=== PATIENT | female | born 1975 ===

== ENCOUNTER 2025-09-23 05:55 | Day surgery (SDC) | payer OTHER ==
[2025-09-16 11:21] VITALS: BP 112/68
[2025-09-16 11:59] LABS: BASO % 0.4 % (0.1-1.2); EOS # 0.10 (0.04-0.54); EOS % 1.1 % (0.7-7.0); LYMPH # 1.67 (1.18-3.74); LYMPH % 17.7 % (19.3-53.1); MEAN PLATELET VOLUME 8.70 fl (9.4-12.4); MONO # 0.58 (0.24-0.82); MONO % 6.1 % (4.7-12.5); NEUT # 6.99 (1.56-6.13); NEUT % 74.1 % (34.0-71.1); RED CELL DISTRIBUTION WIDTH 18.1 % (11.6-14.4)
[2025-09-16 12:22] LABS: URINE APPEARANCE Clear; URINE BILIRRUBIN Negative (NEGATIVE); URINE BLOOD Negative; URINE COLOR Yellow; URINE GLUCOSE Negative (NEGATIVE); URINE KETONE Trace (NEGATIVE); URINE LEUKOCYTE Trace; URINE NITRATE Negative; URINE PROTEIN Negative (NEGATIVE); URINE UROBILINOGEN 0.2 E.U./dl
[2025-09-16 12:23] LABS: INR 0.98
[2025-09-16 12:25] LABS: URINE BACTERIA 579.9 uL (0.0-1933); URINE EPITHELIAL CELLS 15.6 uL (0.0-38.8); URINE RBC 8.3 uL (0.0-20.8); URINE WBC 13.9 uL (0.0-23.2)
[2025-09-16 12:26] LABS: URINE CAST 0.00 uL (0.0-1.40)
[2025-09-16 12:40] LABS: BUN CREA RATIO 23.0 (7.0-25.0); CREATININE SERUM 0.48 mg/dL (0.55-1.02); GFR 136.9; GLUCOSE FASTING 95.0 mg/dL (65-100); OSMOLALITY SERUM 280.0 MOSM/KG (275-295)
[2025-09-23] MEDS ORDERED: CEFAZOLIN SODIUM 1,000 MG VIAL ONE (08:24)
[2025-09-23] MEDS ORDERED: EPINEPHRINE HCL/PF 1 MG/ML AMPUL ONE (09:36)
[2025-09-23] MEDS ORDERED: LIDOCAINE HCL 1%/EPINEPHRINE 20ML VIAL IJ ONE (09:36)
[2025-09-23] MEDS ORDERED: POVIDONE-IODINE 118 ML BOTT TOP ONE (09:36)
[2025-09-23] MEDS ORDERED: CEPHALEXIN500 MG PO (11:39)
[2025-09-23] MEDS ORDERED: CIPROFLOXACIN2.5 ML OTIC (11:40)
== END 2025-09-23 13:25 | disposition home or self-care (01) ==
LOC: CIR.AMB 05:55
PROVIDERS: ATTEND Otolaryngology Otology & Neurotology
DX: H72.11 Attic perforation of tympanic membrane, right ear (principal); H70.11 Chronic mastoiditis, right ear; H65.21 Chronic serous otitis media, right ear